=== PATIENT | female | born 1970 | race Caucasian/White ===

== ENCOUNTER 2021-08-12 06:54 | Outpatient (CLI) | payer BC | END 2021-08-12 06:55 | disposition home or self-care (01) | LOC: BICMRI 06:54 | PROVIDERS: ATTEND Neurological Surgery | DX: M47.26 Other spondylosis with radiculopathy, lumbar region (principal); M48.02 Spinal stenosis, cervical region; M51.16 Intervertebral disc disorders with radiculopathy, lumbar region; M50.121 Cervical disc disorder at C4-C5 level with radiculopathy | CPT/HCPCS: 72141; 72148 ==

== ENCOUNTER 2023-08-30 14:55 | Outpatient (CLI) | payer BC | END 2023-08-30 14:56 | disposition home or self-care (01) | LOC: BICRAD 14:55 | PROVIDERS: ATTEND Specialist | DX: M47.22 Other spondylosis with radiculopathy, cervical region (principal); M25.512 Pain in left shoulder | CPT/HCPCS: 72040 ==